=== PATIENT | male | born 1955 | race Caucasian/White ===

== ENCOUNTER → 2020-06-02 | Outpatient (CLI) | payer MEDICAID, OTHER | END | disposition home or self-care (01) | LOC: CARD 13:58 | PROVIDERS: ATTEND Internal Medicine Hematology & Oncology | DX: C81.11 Nodular sclerosis Hodgkin lymphoma, lymph nodes of head, face, and neck (principal) | CPT/HCPCS: 94010; 94726; 94729 ==

== ENCOUNTER 2020-12-23 12:26 | Day surgery (SDC) | payer OTHER ==
[2020-12-23] MEDS ORDERED: SODIUM CHLORIDE 0.9% 1,000 ML IV SCH (13:00)
[2020-12-23] MEDS ORDERED: LIDOCAINE 1%, 10ML ONE (13:44)
[2020-12-23] MEDS ORDERED: NALOXONE 1 MG/ML, 2ML ONE (14:02)
[2020-12-23] MEDS ORDERED: MIDAZOLAM 1 MG/ML, 5ML ONE (14:02)
[2020-12-23] MEDS ORDERED: FENTANYL PF 100 MCG/2ML ONE (14:02)
[2020-12-23] MEDS ORDERED: FLUMAZENIL 0.1 MG/1 ML, 5ML ONE (14:02)
== END 2020-12-23 16:00 | disposition home or self-care (01) ==
LOC: OUT 12:26
PROVIDERS: ATTEND Internal Medicine Hematology & Oncology
DX: Z45.2 Encounter for adjustment and management of vascular access device (principal); C81.11 Nodular sclerosis Hodgkin lymphoma, lymph nodes of head, face, and neck; I10 Essential (primary) hypertension; G47.30 Sleep apnea, unspecified; Z79.899 Other long term (current) drug therapy
CPT/HCPCS: 36590; 77001; 99156; 99157; J2250; J3010; J2310